=== PATIENT | male | born 1990 | race Caucasian/White ===

== ENCOUNTER 2017-11-18 08:06 | Emergency (ER) | payer OTHER ==
[~2017-11-18] VITALS: Ht 180.3 cm; Wt 245.0 kg
== END 2017-11-18 08:28 | disposition home or self-care (01) ==
LOC: ED 08:06
DX: S61.210A Laceration without foreign body of right index finger without damage to nail, initial encounter (principal); W26.0XXA Contact with knife, initial encounter; Y92.69 Other specified industrial and construction area as the place of occurrence of the external cause; Y99.0 Civilian activity done for income or pay

== ENCOUNTER 2018-05-06 12:19 | Emergency (ER) | payer OTHER ==
[~2018-05-06] VITALS: Ht 182.9 cm; Wt 104.3 kg
== END 2018-05-06 12:33 | disposition home or self-care (01) ==
LOC: ED 12:19
DX: S51.811A Laceration without foreign body of right forearm, initial encounter (principal); W26.0XXA Contact with knife, initial encounter

== ENCOUNTER 2019-07-26 01:07 | Emergency (ER) | payer BC ==
[~2019-07-26] VITALS: Ht 182.9 cm; Wt 111.1 kg
[2019-07-26] MEDS ORDERED: CEPHALEXIN500 MG PO (01:29)
== END 2019-07-26 01:43 | disposition home or self-care (01) ==
LOC: ED 01:07
DX: L08.9 Local infection of the skin and subcutaneous tissue, unspecified (principal); I10 Essential (primary) hypertension
CPT/HCPCS: 99283

== ENCOUNTER 2020-06-10 11:45 | Emergency (ER) | payer OTHER, BC ==
[~2020-06-10] VITALS: Ht 182.9 cm; Wt 108.9 kg
[~2020-06-10 11:45] MED LIST: CEPHALEXIN500 MG PO
== END 2020-06-10 17:50 | disposition home or self-care (01) ==
LOC: ED 11:45
DX: S13.4XXA Sprain of ligaments of cervical spine, initial encounter (principal); S20.211A Contusion of right front wall of thorax, initial encounter; I10 Essential (primary) hypertension; V44.5XXA Car driver injured in collision with heavy transport vehicle or bus in traffic accident, initial encounter
CPT/HCPCS: 99283

== ENCOUNTER 2020-06-23 17:26 | Emergency (ER) | payer OTHER, BC ==
[~2020-06-23] VITALS: Ht 182.9 cm; Wt 108.9 kg
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
[2020-06-23] MEDS ORDERED: KEFLEX500 MG PO (18:09)
== END 2020-06-23 18:27 | disposition home or self-care (01) ==
LOC: ED 17:26
PROC: 0HQDXZZ Repair Right Lower Arm Skin, External Approach (ICD-10-PCS; principal; 2020-06-23)
DX: S51.811A Laceration without foreign body of right forearm, initial encounter (principal); I10 Essential (primary) hypertension; W01.10XA Fall on same level from slipping, tripping and stumbling with subsequent striking against unspecified object, initial encounter
CPT/HCPCS: 12002; 99282-25